=== PATIENT | male | born 1965 | race Caucasian/White ===

== ENCOUNTER 2018-06-21 09:41 | Emergency (ER) | payer OTHER ==
[~2018-06-21] VITALS: Ht 185.4 cm; Wt 91.2 kg
[2018-06-21] MEDS ORDERED: EXEN10PE3 INJ (10:14)
[2018-06-21] MEDS ORDERED: METF500T17 PO (10:15)
[2018-06-21] MEDS ORDERED: GLYB5TAB3 PO (10:15)
[2018-06-21] MEDS ORDERED: SODIUM CHLORIDE 0.9% 1,000ML IVBOLUS ONE (10:30)
[2018-06-21] MEDS ORDERED: SODIUM CHLORIDE FLUSH 10ML SYR IVF ONE (10:30)
[2018-06-21] MEDS ORDERED: ONDANSETRON 2MG/ML, 2ML IVPush ONE (10:30)
[2018-06-21] MEDS ORDERED: ONDANSETRON 2MG/ML, 2ML ONE (10:35)
[2018-06-21 10:46] LABS: BASOPHILS # (AUTO) 0.02 x10^3/uL (0-0.1); BASOPHILS % (AUTO) 0 % (0-1); EOSINOPHILS # (AUTO) 0.06 x10^3/uL (0-0.4); EOSINOPHILS % (AUTO) 1 % (1-7); LYMPHOCYTES # (AUTO) 0.68 x10^3/uL (1-3.4); LYMPHOCYTES % (AUTO) 11 % (22-44); MD NO; MEAN CORPUSCULAR HEMOGLOBIN 30.7 pg (27.5-34.5); MEAN CORPUSCULAR HGB CONC 34.1 g/dL (33.2-36.2); MEAN CORPUSCULAR VOLUME 89.8 fL (81-97); MONOCYTES # (AUTO) 0.65 x10^3/uL (0.2-0.8); MONOCYTES % (AUTO) 11 % (2-9); NEUTROPHILS # (AUTO) 4.73 x10^3/uL (1.8-6.8); NEUTROPHILS % (AUTO) 77 % (42-75); PLATELET COUNT 148 x10^3/uL (130-400); RED BLOOD COUNT 5.34 x10^6/uL (4.38-5.82); RED CELL DISTRIBUTION WIDTH 12.4 % (9.4-14.8)
[2018-06-21 10:52] LABS: MICROSCOPIC NOT IND
[2018-06-21 10:55] LABS: ANION GAP 9 mmol/L (5-15); CALCIUM 8.7 mg/dL (8.5-10.1); CHLORIDE 104 mmol/L (98-107); CREATININE 1.11 mg/dL (0.7-1.3)
[2018-06-21 10:57] LABS: CULTURE INDICATED? NO
[2018-06-21] MEDS ORDERED: ALBUTEROL/IPRATROPIUM 2.5MG/0.5MG, 3 ML NPPB ONE (11:30)
[2018-06-21] MEDS ORDERED: ALBUTEROL/IPRATROPIUM 2.5MG/0.5MG, 3 ML ONE (11:37)
[2018-06-21 12:35] VITALS: BP 129/79
== END 2018-06-21 12:39 | disposition home or self-care (01) ==
LOC: ED 12:33
DX: J00 Acute nasopharyngitis [common cold] (principal); E11.9 Type 2 diabetes mellitus without complications
CPT/HCPCS: 36415; 71046; 80048; 81003; 82040; 83605; 84145; 85025; 87040; 93005; 94640; 96361; 96374; 99285; J2405; J7030; J7512; J7620